=== PATIENT | male | born 1995 | race Caucasian/White ===

== ENCOUNTER 2020-04-06 15:47 | Emergency (ER) | payer OTHER ==
[2020-04-06 16:00] VITALS: BMI 26.6
[2020-04-06] MEDS ORDERED: DIPHTH,PERTUSS(ACELL),TET 0.5 ML DISP.SYRIN IM ONE ×2 (16:15→16:19)
--- NOTE | 2020-04-06 16:21 | PDOC ---
History of Present Illness - General Chief Complaint: Laceration Stated Complaint: I CUT MY FINGER Time Seen by Provider: 04/06/20 15:54 History Source: Patient Exam Limitations: No Limitations - History of Present Illness Initial Comments: 04/06/20 16:16 24 yo male no pmhx here with c/o cut left index finger. happened just prior to arrival while gardening. cut on a knife. pt also incidentally has had runny nose, congestion and sore throat for several days. was tested for covid 2 days ago and negative. last tetanuse unknown. no other complaints of cough. no sob. no mod factors. bleeding controlled with pressure. Past History - Medical History Allergies/Adverse Reactions: Allergies Allergy/AdvReac Type Severity Reaction Status Date / Time No Known Allergies Allergy Verified 04/06/20 15:47 Home Medications: Ambulatory Orders NK [No Known Home Medication] 04/06/20 COPD: No Other medical history: DENIES - Psycho-Social/Smoking History Smoking History: Never smoked - Substance Abuse Hx (Audit-C & DAST Scrn) How often the patient has a drink containing alcohol: Never Score: In Men: 4 or > Positive; In Women: 3 or > Positive: 0 Screen Result (Pos requires Nsg. Audit-10AR): Negative In the last yr the pt used illegal drug/Rx for NonMed reason: No Score: Yes response is considered Positive: 0 Screen Result (Positive result requires Nsg. DAST-10): Negative Review of Systems - Review of Systems Constitutional: No: Chills HEENTM: Yes: Nose Congestion. No: Eye Pain Respiratory: No: Cough, Shortness of Breath Cardiac (ROS): No: Chest Pain, Edema ABD/GI: No: Nausea, Vomiting Hematologic/Lymphatic: No: Anemia All Other Systems: Reviewed and Negative *Physical Exam - Vital Signs Last Vital Signs Temp Pulse Resp BP Pulse Ox 0/0 L 04/06/20 15:47 - Physical Exam 04/06/20 16:18 awake alert lungs clear bilat heart rrr no mrg exam left hand, small superfici al laceration 1 cm volar index finger . central area with bleeding. n/v intact distally. Medical Decision Making - Medical Decision Making 04/06/20 16:18 24 yo s/p laceration to left index finger. digital block sutures placed x 2. tolerated well. dc home. Discharge - Discharge Information Problems reviewed: Yes Clinical Impression/Diagnosis: Laceration of finger Condition: Improved Disposition: HOME - Admission No - Follow up/Referral Referrals: Delon Amezcua MD [Primary Care Provider] - - Patient Discharge Instructions Patient Printed Discharge Instructions: DI for Laceration Repair Additional Instructions: your sutures should be removed in 7 - 10 days. you can come here or your primary doctor. keep clean and dry for 2 days. then wash with mild soap and water, apply bacitracin ointment or any triple antiobiotics cream twice daily. return soon for redness. swelling or any signs of infection. you can take tylenol 500 mg every 6 hours as needed for pain. you were given a tetanus shot today, and are up to date for 5 yrs. - Post Discharge Activity
[2020-04-06 16:22] VITALS: BP 130/58; PULSE 81; TEMP 99
== END 2020-04-06 16:51 | disposition home or self-care (01) ==
LOC: FER 15:47
PROC: 3E0234Z Introduction of Serum, Toxoid and Vaccine into Muscle, Percutaneous Approach (ICD-10-PCS; principal; 2020-04-06)
DX: S61.211A Laceration without foreign body of left index finger without damage to nail, initial encounter (principal)
CPT/HCPCS: 90715; 99284-25

== ENCOUNTER 2020-04-15 11:37 | Emergency (ER) | payer OTHER ==
--- OUTSIDE RECORDS SUMMARY | 2020-04-15 11:46 | XMS ---
:1995 Author Organization [facility] Care Team Providers Name Role Phone Myrna Holguin MD Unavailable Unavailable Zeferino Riddle MD Unavailable Unavailable Re-disclosure Warning The records that you are about to access may contain information from federally- assisted alcohol or drug abuse programs. If such information is present, then the following federally mandated warning applies: This information has been disclosed to you from records protected by federal confidentiality rules (42 CFR part 2). The federal rules prohibit you from making any further disclosure of this information unless further disclosure is expressly permitted by the written consent of the person to whom it pertains or as otherwise permitted by 42 CFR part 2. A general authorization for the release of medical or other information is NOT sufficient for this purpose. The Federal rules restrict any use of the information to criminally investigate or prosecute any alcohol or drug abuse patient.The records that you are about to access may contain highly sensitive health information, the redisclosure of which is protected by Article 27-F of the [facility] Public Health law. If you continue you may haveaccess to information: Regarding HIV / AIDS; Provided by facilities licensed or operated by the [facility] Office of Mental Health; or Provided by the [facility] Office for People With Developmental Disabilities. If such information is present, then the following [facility] mandated warning applies: This information has been disclosed to you from confidential records which are protected by state law. State law prohibits you from making any further disclosure of this information without the specific written consent of the person to whom it pertains, or as otherwise permitted by law. Any unauthorized further disclosure in violation of state law may result in a fine or penitentiary sentence or both. A general authorization for the release of medical or other information is NOT sufficient authorization for further disclosure. Allergies and Adverse Reactions Type Description Substance Reaction Status Data Source(s ) Drug allergy No Known Allergies No Known NO KNOWN ALLERG [facility] Allergies None Hospital Encounters Encounter Providers Location Date Indications Data Source(s ) Emergency Attender: Zeferino 04/04/2020 COVID TEST NANCY Riddle MD 11:32:00 AM Hospital EDT - 04/04/2020 01:17:00 PM EDT COVID TEST NANCY Patient discharged. Outpatient Attender: Myrna 02/24/2020 12:44:00 COVID TEST Harvey Holguin MD PM EDT [facility] COVID TEST [place] Insurance Providers Payer name Policy type Policy ID Covered Covered libertarian's Policy P edna / Coverage libertarian ID relationship to [place] [facility] ormation type thor[facility] [id number] [facility]ARE [facility] [id number] PT [id number] [facility] COMMERCIAL [id number] PT [id number] OTHER 1 [facility] [id number] [place] [id number] [facility] [place] [id number] Self [id number] [facility] [id number] Child [id number] 01 HEALTH CARE [facility] [id number] Child [id number] 01 HEALTH CARE Problems, Conditions, and Diagnoses Code Display Name Description Problem Type Effective Dates Data Source(s) B34.9 Viral infection, B34.9 Diagnosis 04/04/2020 Harvey Nolan ains unspecified 12:55:00 PM EDT Hospital Z11.59 Encounter for Z11.59 Diagnosis 02/24/2020 Harvey butt screening for other 12:47:00 PM EDT Hospital viral diseases Results ID Date Data Source [id number] 03/04/2020 01:22:00 PM EDT [facility] Name Value Range Interpretation Description Data Sup porting Code Source(s) Document(s ) SARS [facility] coronavirus 2 RNA This lab was ordered by [facility] and reported by [facility]. ID Date Data Source [id number] 02/24/2020 12:56:00 PM EDT [facility] Name Value Range Interpretation Code Description Data Tamiak rce(s) Supporting Document(s ) COV2 [facility] This lab was ordered by [facility] and reported by [facility] [place]. Procedure Vital Signs ID Date Data Source UNK Name Value Range Interpretation Code Description Data Source(s) Diastolic blood 75 mm[Hg] 75 mm[Hg] [facility] pressure Hospital Systolic blood 144 mm[Hg] 144 mm[Hg] [facility] pressure Hospital Respiratory rate 18 /min 18 /min [facility] Heart rate 68 /min 68 /min [facility] Body temperature 36.49720 36.11691 [facility] Body temperature 98.4 [degF] 98.4 [degF] [facility] Body mass index 27.0 kg/m2 27.0 kg/m2 [facility] ins (BMI) [Ratio] Hospital Body weight 167.35 167.35 [lb_av] [facility] [lb_av] [facility]
--- NOTE | 2020-04-15 11:49 | PDOC ---
Suture Removal/Wound Check HPI - History of Present Illness Chief Complaint: Suture/Staple Removal(Here) Stated Complaint: suture removal right 1st finger Time Seen by Provider: 04/15/20 11:41 - Onset of Previous Treatment Comment:: 04/15/20 11:47 24 M here for suture removal. Had 3 stitches placed in L index finger 9 days ago. No complaints. No redness/swelling/drainage. Past History - Medical History Allergies/Adverse Reactions: Allergies Allergy/AdvReac Type Severity Reaction Status Date / Time No Known Allergies Allergy Verified 04/06/20 15:47 Home Medications: Ambulatory Orders NK [No Known Home Medication] 04/06/20 COPD: No - Immunization History Immunization Up to Date: Yes - Psycho-Social/Smoking History Smoking History: Never smoked Have you smoked in the past 12 months: No Information on smoking cessation initiated: No - Substance Abuse Hx (Audit-C & DAST Scrn) How often the patient has a drink containing alcohol: Never Score: In Men: 4 or > Positive; In Women: 3 or > Positive: 0 Screen Result (Pos requires Nsg. Audit-10AR): Negative In the last yr the pt used illegal drug/Rx for NonMed reason: No Score: Yes response is considered Positive: 0 Screen Result (Positive result requires Nsg. DAST-10): Negative *Review of Systems - Review of Systems 04/15/20 11:47 "GENERAL/CONSTITUTIONAL: No fever or chills. No weakness. HEAD, EYES, EARS, NOSE AND THROAT: No change in vision. No ear pain or discharge. No sore throat. CARDIOVASCULAR: No chest pain, no shortness of breath, no loss of consciousness RESPIRATORY: No cough, wheezing, or hemoptysis. GASTROINTESTINAL: No nausea, vomiting, diarrhea or constipation. GENITOURINARY: No dysuria, frequency, or change in urination. MUSCULOSKELETAL: No joint or muscle swelling or pain. No neck or back pain. SKIN: No rash NEUROLOGIC: No vertigo, no change in strength/sensation. ENDOCRINE: No increased thirst. No abnormal weight change. HEMATOLOGIC/LYMPHATIC: No anemia, easy bleeding, or history of blood clots. ALLERGIC/IMMUNOLOGIC: No hives or skin allergy. *Physical Exam - Vital Signs Last Vital Signs Temp Pulse Resp BP Pulse Ox 98.2 F 72 18 122/72 100 04/15/20 11:39 04/15/20 11:39 04/15/20 11:39 04/15/20 11:39 04/15/20 11:39 - Physical Exam 04/15/20 11:48 "GENERAL: Awake, alert, and fully oriented, in no acute distress. HEAD: No signs of trauma EYES: PERRLA, EOMI, sclera anicteric, conjunctiva clear ENT: Auricles normal inspection, hearing grossly normal, nares patent, oropharynx clear without exudates. Moist mucosa NECK: Nontender, no stepoffs, Normal ROM, supple, no lymphadenopathy, JVD, or masses LUNGS: Breath sounds equal, clear to auscultation bilaterally. No wheezes, and no crackles HEART: Regular rate and rhythm, normal S1 and S2, no murmurs, rubs or gallops ABDOMEN: Soft, nontender, normoactive bowel sounds. No guarding, no rebound. No masses EXTREMITIES: Normal range of motion, no edema. No clubbing or cyanosis. No cords, erythema, or tenderness NEUROLOGICAL: Cranial nerves II through XII intact. 5/5 strength and sensation in all extremities, Normal speech, normal gait, normal cerebellar function SKIN: + 3 sutures in L index finger, wound well healed Medical Decision Making - Medical Decision Making 04/15/20 11:48 24 M here for suture removal. - 3 sutures removed Pt is well appearing, with normal vitals. Clinically stable for DC at this time. I discussed the physical exam findings, ancillary test results and final diagnoses with the patient. I answered all of the patient's questions. The patient was satisfied with the care received and felt comfortable with the discharge plan and treatment plan. The patient agrees to follow up with the primary care physician within 24-72 hours. Discharge - Discharge Information Problems reviewed: Yes Clinical Impression/Diagnosis: Visit for suture removal Condition: Stable Disposition: HOME - Follow up/Referral - Patient Discharge Instructions Patient Printed Discharge Instructions: DI for Suture Removal Additional Instructions: If you notice any redness, swelling, drainage, bleeding, or other concerning symptoms, return to the ER immediately. - Post Discharge Activity
[2020-04-15 12:27] VITALS: BP 122/72; PULSE 72; TEMP 98.2; BMI 26.9
== END 2020-04-15 11:53 | disposition home or self-care (01) ==
LOC: FER 11:37
DX: Z48.02 Encounter for removal of sutures (principal)
CPT/HCPCS: 99281-25